=== PATIENT | female | born 1990 | race Caucasian/White ===

== ENCOUNTER 2025-05-25 08:58 | Emergency (ER) | payer OTHER, SELFPAY ==
--- NOTE | 2025-05-25 11:25 | PC.NURSE ---
Patient registered, but her insurance was not in our network. Patient left without being seen.
== END 2025-05-25 11:25 | disposition left against medical advice (07) ==
PROVIDERS: PCP Obstetrics & Gynecology
DX: Z53.21 Procedure and treatment not carried out due to patient leaving prior to being seen by health care provider (principal)
CPT/HCPCS: 99199